=== PATIENT | male | born 1960 | race Caucasian/White ===

== ENCOUNTER 2019-12-13 06:05 | Day surgery (SDC) | payer OTHER ==
[2019-12-06 10:43] LABS: CALCIUM 9.4 mg/dL (8.5-10.1); POTASSIUM 4.2 mmol/L (3.5-5.1)
[~2019-12-13] VITALS: Ht 190.5 cm; Wt 74.8 kg
[~2019-12-13 06:05] MED LIST: ADULT ONE DAI200 MCG PO; ALLERGY RELIEF10 M1 PO; CBD PO; GABAPENTIN600 M1 PO; IBUPROFEN 800800 M1 PO; PREDNISONE 5 MG5 MG PO; PROBIOTIC1 EAC7 PO; VITAMIN B-12500 MCG PO
[2019-12-13 07:34] VITALS: BP 137/82
[2019-12-13 12:26] VITALS: BP 134/81
--- NOTE | 2019-12-13 12:40 | O ---
[place] [address] OPERATIVE REPORT Name: ZAHIDA JASSO Room #: 438-P [facility]..#: [id number] Admission: 12/13/19 Attend Phys: Jovanny Galvan MD Discharge: Date of : 64 Report #: [id number] THIS REPORT FOR: cc: Hira Levine MD,Hira Galvan,Jovanny Lara MD ~ CC: Jovanny Levine DATE OF SERVICE: 12/13/2019 PREOPERATIVE DIAGNOSIS: Herniated lumbar disk, L4-L5, left with radiculopathy. POSTOPERATIVE DIAGNOSIS: Herniated lumbar disk, L4-L5, left with radiculopathy. PROCEDURE: Decompressive laminectomy and diskectomy, L4-L5, left. SURGEON: Jovanny Galvan MD INDICATIONS: This very slender, generally fit and active 59-year-old gentleman has had some previous problems with low back and left leg pain. MRI 4 years ago demonstrated a herniated disk at L4-L5, but this was rather small and was managed conservatively. Now, he has had much more severe pain which principally involves radiating left leg pain with some sense of numbness and weakness. Those symptoms have advanced such that he now is essentially bedridden with marked pain whenever he is trying to sit, stand or walk. He has been on multiple narcotic medications in the past and now is trying to avoid those medications, but is having difficulty given his severe pain. His new MRI study reveals evidence of a small extruded disk fragment at the L4-L5 level toward the left side, which caused significant foraminal narrowing. I have discussed with the patient and his treatment options and potential risks and benefits. He understands well and feels that the nonsurgical management over the past 4-6 weeks has been ineffective and he has been essentially miserable with bed rest at home even with ongoing medications. 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 DESCRIPTION OF PROCEDURE: The patient was taken to the operating room where he was placed under general anesthesia. Prophylactic intravenous antibiotics were administered. He was turned to the prone position. Pressure points were padded. The lower back was meticulously prepped and draped. C-arm was used to localize the appropriate level. A skin incision was made just to the left of midline overlying the L4-L5 interspace. This was carried along the left paraspinal plane retracting the muscle and fascia out laterally. The [address] [address] OPERATIVE REPORT Name: ZAHIDA JASSO Room #: 438-P [facility] M.R.#: [id number] Admission: 12/13/19 Attend Phys: Jovanny Galvan MD Discharge: Date of : 64 Report #: [id number] L4 and L5 were identified. A hemilaminectomy on the left at L5 was performed and a partial hemilaminectomy at L4 was performed. This was extended out laterally to expose the facet joint which was maintained, but undercut somewhat to create better room at the neural foramina. Once satisfactory decompressive laminectomy was completed, there was obvious deformity of the thecal sac and nerve root. This was gently retracted toward the midline and a moderately large extruded disk fragment was identified. This had obviously been there for some time as there was some surrounding scarring and erythema. The large fragment was removed. There was an obvious defect in the disk and annulus, which could be probed with pituitary rongeurs. A good deal of additional disk material was removed from within the disk space itself. A C-arm view with a probe in the disk space was obtained to confirm that I was at the appropriate L4-L5 level. After the disk was thoroughly decompressed, there was no longer any apparent disk material in the canal. The canal was carefully probed across the midline and far out laterally and both proximally and distally. The L5 nerve root was traced out distally and seemed to be freed up with no significant ongoing impingement. The nerve root was moderately erythematous consistent with some chronic compression and inflammation. At this point, I felt there was adequate decompression and no further dissection seemed necessary. The wound was copiously irrigated and then gently packed using thrombin and Gelfoam until excellent hemostasis was confirmed. At this point, 40 mg of Depo-Medrol were left in the epidural space around the nerve root. A very small sheet of Gelfoam was left overlying the laminotomy defect to keep the Depo-Medrol in place and to promote hemostasis. The paraspinal muscles were reapproximated and the fascia was closed with multiple #1 Vicryl sutures. Subcutaneous tissues were closed with 2-0 Monocryl. The skin was closed with 2-0 Prolene and Steri-Strips. A sterile dressing was applied. The patient was awakened and returned to recovery room in good condition. <ELECTRONICALLY SIGNED> By: Jovanny Galvan MD 12/13/19 1240 [id number] Jovanny Galvan MD /nt
[2019-12-13] MEDS ORDERED: ONDANSETRON HCL4 M2 PO (12:47)
[2019-12-13 15:45] VITALS: BP 134/81
[2019-12-13 17:35] VITALS: BP 110/77
--- NOTE | 2019-12-13 18:44 | NUR ---
PT ARRIVED ON THE UNIT FROM [facility]. PT DRESSING ON LOWER BACK IS CDI. PT REPORTS PAIN IS 5/10, HE RECEIVED PRN ANALGESIC AND ZOFRAN. PT HAS N/V WHEN HE SITS UP IN BED. PT USES URINAL, TOLERATING CLEAR LIQUIDS. CALL LIGHT IN REACH. WENT TO PHARMACY AND WILL COME BACK TO [facility] HER .
--- NOTE | 2019-12-13 20:39 | NUR ---
ASSUMED PT CARE AT APPROX 1900.PER REPORT,PT HAS BEEN DC AND IS WAITING FOR TO PUCK HIM UP.PT ATTEMPTED TO WALK AROUND IN ROOM BUT GOT NAUSEOUS WHEN HE TOOK A FEW STEPS SO HE SAT DOWN.PT'S FINALLY CAME AND PICKED HIM UP AT 1999.PT LEFT IN WC TO THE ER BY STAFF. PT LEFT WITH ALL HIS PERSONAL BELONGINGS.
--- NOTE | 2019-12-14 08:39 | NUR ---
ORDERS RECEIVED FOR PT EVAL AND TREAT. Pt DISCHARGED HOME BEFORE PT EVALUATION COULD BE COMPLETED.
--- NOTE | 2019-12-17 12:07 | PATH ---
[facility] [place] [address] PATHOLOGY RPT PROCEDURE Name: ROMEROTEETEEDLGLORIA Ayoub Room #: DEP [facility] M.R.#: [id number] Admission: 12/13/19 Date of : 64 Discharge: 12/13/19 Report #: [id number] Path Case #: [id number] [facility] Accession Number: [id number] . 01 Material submitted: . vertebral column - LEFT L4-5 DISC. Modifiers: left . 01 Clinical history: . Other intervertebral disc displacement, lumbar region, unspecified thoracic, thoracolumbar and lumbosacral intervertebral disc disorder; sprain of ligaments and lumbar spine, initial encounter . 02 Diagnosis: Left L4-5 disc, discectomy: - Fragments of nucleus pulposus with neovascularization. - Fragments of skeletal muscle showing reactive changes. . (IUV:mml; 12/16/2019) QL 12/16/2019 1655 Local . 02 Electronically signed: . Jasmin Nazario MD, Pathologist NPI- [id number] . 01 Gross description: . The specimen is received in formalin, labeled "Alan Jasso, left L4-L5 disc". Received are multiple segments of pale romero to pink-romero fibrous soft tissue measuring 2.8 x 2.2 x 0.4 cm in aggregate dimensions. The specimen is filtered and entirely submitted in cassette A1. (CAA; 12/13/2019) QA/QA 12/13/2019 1618 Local . 02 Pathologist provided ICD-10: M51.26 . 02 CPT . 180343 Specimen Comment: A courtesy copy of this report has been sent to [phone] Specimen Comment: [id number] Specimen Comment: Report sent to / DR CASTREJON Performed at: [address] [id number] MD Maurice White MD Phone: [phone] Performed at: [address] [address] PATHOLOGY RPT PROCEDURE Name: ALAN JASSO Room #: DEP [facility] Pura#: [id number] Admission: 12/13/19 Date of : 64 Discharge: 12/13/19 Report #: [id number] Path Case #: [id number] [address] [place], [place] [id number] MD Jasmin Nazario MD Phone: [phone]
== END 2019-12-13 20:00 | disposition home or self-care (01) ==
LOC: TBA 06:05 → OR 06:05 → TBA 06:07 → OR 09:59 → 4S 11:24 → OR 11:45
PROVIDERS: ATTEND Orthopaedic Surgery
DX: M51.16 Intervertebral disc disorders with radiculopathy, lumbar region (principal); Z98.890 Other specified postprocedural states; Z79.899 Other long term (current) drug therapy
CPT/HCPCS: 10102; 50010; 50101; 50402; 50704; 50850; 56525; 62110; 62900; 70005